=== PATIENT | male | born 1945 | race Caucasian/White ===

== ENCOUNTER → 2016-10-18 | Outpatient (CLI) | payer OTHER ==
--- NOTE | 2016-10-18 19:56 | DI ---
LEFT SHOULDER, 10/18/2016 2:51 PM: Clinical History: Bilateral shoulder pain. Previous Exam: None at this facility. 4 views are submitted. There is no acute soft tissue, osseous, or joint abnormality. 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 The visualized portions of the left apex and left lung are normal. Reading: Moderate arthrosis of the AC joint. The glenohumeral joint is intact.
--- NOTE | 2016-10-18 20:02 | DI ---
RIGHT SHOULDER, 10/18/2016 2:51 PM: Clinical History: Bilateral shoulder pain. Previous Exam: None at this facility. 4 views are submitted. There is no acute soft tissue, osseous, or joint abnormality. There is narrowi ng of the glenohumeral joint with sclerosis of the humeral head and glenoid fossa. Bone spurring has developed along the inferior margin of the humeral head, and there may be a bony density in the axill suki pouch representing a synovial osteochondroma. There is moderate arthrosis of the AC joint. The vi sualized portions of the right lung and right apex are normal. Readin. 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 2. Moderate arthrosis of the AC joint.
== END ==
LOC: ORTHO 15:19
PROVIDERS: ATTEND Orthopaedic Surgery
DX: M25.511 Pain in right shoulder (principal); M25.512 Pain in left shoulder; M19.012 Primary osteoarthritis, left shoulder; M19.011 Primary osteoarthritis, right shoulder
CPT/HCPCS: 73030